=== PATIENT | male | born 1945 | race Caucasian/White ===

== ENCOUNTER 2023-12-19 11:04 | Emergency (ER) | payer OTHER, SELFPAY ==
[2023-12-19] VITALS (7 sets, daily range): BP systolic 100–125; BP diastolic 56–70; BMI 28.4
--- NOTE | 2023-12-19 12:04 | ED.GENMED ---
History of Present Illness
General
Chief Complaint: Chest Problem
Time Seen by Provider: 12/19/23 11:20
Travel History
Have you had any contact with someone who has COVID-19?: No
Do you have any symptoms of coronavirus? Fever > 100 degrees, chills, cough, shortness of breath, sore throat, loss of taste or smell, muscle aches, or headache?: No
History of Present Illness
History of Present Illness:
78-year-old male with history of atrial fibrillation on Eliquis presents to the emergency department from his orthopedic appointment for evaluation of intractable hiccups for the past day associated with A-fib. The patient has been in A-fib ever
since he underwent his knee replacement surgery and was started on Eliquis shortly in the postoperative period. He was seen in the orthopedic office today for follow-up and sutures were removed, it is felt that the knee was improving well however
due to irregular heart rhythm was sent to the emergency department. He denies any chest pain or shortness of breath. He has been hiccuping for the past day with an unclear cause of this.
Past History
Past History
ED Past Medical History: Arrthythmia, HTN, Other (Osteoarthritis, questionable sleep apnea) and Other (Prostate enlargement)
ED Past Surgical History: Orthopedic (knee replacements) and Other (hernia repair)
Patient has exhibited threatening behavior?: No
Social History
Tobacco: Non-smoker
Alcohol: None
Drug: None
Personal:
Living: with family
Employment: Employed (construction)
Family History
Family History: Other (n/c)
Review of Systems
Review of Systems
Allergies reviewed?: Yes
All Other Systems: ROS reviewed and negative except as documented in HPI and ROS
Phy Exam
Physical Exam
Physical Exam:
GEN: Well appearing, NAD, WDWN
Eyes: PERRLA, EOMs intact, no scleral icterus
HENT: NCAT, oral mucosa moist, no JVD, no cervical adenopathy.
Lungs: CTAB, no wheezes, rales, rhonchi, normal chest wall excursion
Cardiac: Regular rate and rhythm, no M/R/G, no peripheral edema. Radial pulses 2+ bilat
Abdomen: S, NT, ND, NABS, no masses or hepatosplenomegaly
Neuro: AO x 3, no focal deficits to BUE/BLE, normal sensation throughout
MSK: Status post left total knee replacement, incision is well-approximated with no dehiscence, significant edema of the left lower extremity baseline for the patient since surgery
Skin: No rashes, petechiae. Normal color, no pallor or jaundice.
Psych: Calm, cooperative, proper hygiene
Course
Orders/Labs/Results
Orders:
Orders
12/19/23 11:12
Electrocardiogram (*1) Urgent
Reason for Study: Atrial Fibrillation
EKG- Treatment ONCE
12/19/23 11:39
CR Chest - 2 Views Urgent
Comment:
Reason For Exam: DEL RIO/SOB
12/19/23 11:42
Complete Blood Count/With Diff Urgent
Comprehensive Metabolic Panel Urgent
NT-proBNP Urgent
Troponin I Urgent
12/19/23 13:42
ChlorproMAZINE [Thorazine] 25 mg IM NOW STA
Abnormal Lab Results
12/19/23
11:42
WBC 14.5 H 10^3/uL
(4.8-10.8)
RBC 4.32 L 10^6/uL
(4.70-6.10)
Hgb 10.3 L g/dL
(13.0-18.0)
Hct 31.0 L %
(39.0-52.0)
MCV 71.8 L fL
(80.0-94.0)
MCH 23.8 L pg
(27.0-31.0)
RDW 16.0 H %
(11.5-14.5)
Abs Immat Gran (auto) 0.1 H 10^3/uL
(0-0.05)
Absolute Neuts (auto) 10.9 H 10^3/uL
(1.4-6.5)
Absolute Monos (auto) 2.1 H 10^3/uL
(0.1-0.6)
Immature Gran % 0.8 H %
(0-0.5)
Lymphocytes % 8.9 L %
(20.5-51.1)
Monocytes % 14.7 H %
(1.7-9.3)
Sodium 132 L mmol/L
(135-145)
BUN 37 H mg/dl
(9-20)
Creatinine 1.8 H mg/dL
(0.7-1.3)
Glucose 110 H mg/dl
(70-99)
Total Bilirubin 1.9 H mg/dl
(0.2-1.3)
Total Protein 5.4 L g/dl
(6.3-8.2)
Albumin 2.9 L g/dl
(3.5-5.0)
12/19/23 11:42
12/19/23 11:42
Vital Signs
Initial and Last Documented VS:
Initial Vital Signs
Temp Pulse Resp BP Pulse Ox
98.0 F 109 16 100/70 98
12/19/23 11:09 12/19/23 11:09 12/19/23 11:09 12/19/23 11:09 12/19/23 11:09
Last Documented Vital Signs
Temp Pulse Resp BP Pulse Ox
99.1 F 95 17 125/59 99
12/19/23 14:10 12/19/23 14:10 12/19/23 14:10 12/19/23 14:10 12/19/23 14:10
MDM/Problems Addressed
MDM/Problems Addressed:
EKG independently interpreted by me is limited due to patient motion artifact however does reveal a rate controlled atrial fibrillation
Patient has been in rate controlled A-fib since his procedure he is currently on diltiazem and metoprolol as well as anticoagulants. He is relatively asymptomatic from a cardiac standpoint. Unclear etiology to the patient's hiccups, no improvement
with IM Thorazine.
*Critical Care Note
Total Time (30-74mins, 75-104mins- exclusive of procedures): Not Applicable
ED Attending Note
-
Portions of this chart may have been created with voice recognition software.� Occasional wrong word or��sound alike� substitutions may have occurred due to the inherent limitations of voice recognition software.
Discharge Plan
Departure
Patient Disposition: Home (Routine Discharge)
Date of Disposition: 12/19/23
Time of Disposition: 13:59
Patient with high blood pressure during this ER visit?: No
Discharge Problem:
Intractable hiccups, Atrial fibrillation
Instructions: Hiccups, Atrial Fibrillation (DC)
Prescriptions:
No Action
colchicine 0.6 MG capsule
0.6 mg PO PRN PRN (Reason: GOUT)
diltiazem HCl 120 MG capsule,ext.rel 24h degradable
120 mg PO BID Qty: 60 3RF
multivitamin Tablet
1 tab PO DAILY
mupirocin 2 % ointment
1 applic topical BID Qty: 1 0RF
metoprolol succinate 50 mg Tablet Extended Release 24 Hr
50 mg PO BID Qty: 1 0RF
sennosides [Senokot] 8.6 mg tablet
17.2 mg PO BID Qty: 2 0RF
cefadroxil 500 mg capsule
500 mg PO BID Qty: 14 0RF
Rx Instructions:
*Take w/ food
*Take w/ probiotic
*POST-OP USE
famotidine 20 mg tablet
20 mg PO HS Qty: 30 0RF
Rx Instructions:
post-op
magnesium hydroxide [Milk of Magnesia] 400 mg/5 mL suspension
30 ml PO HS PRN (Reason: Constipation) Qty: 1 0RF
dexamethasone 4 mg tablet
4 mg PO BID Qty: 6 0RF
Rx Instructions:
take with food
post-op use only
docusate sodium [Colace] 100 mg capsule
100 mg PO BID Qty: 1 0RF
gabapentin 300 mg capsule
300 mg PO HS Qty: 10 0RF
oxycodone 5 mg tablet
5 - 10 mg PO Q6HPRN PRN (Reason: 1 tab moderate-2 tabs severe pain) Qty: 30 0RF
Rx Instructions:
Dx surgery
ongoing therapy
Post-op use
Saccharomyces boulardii [Florastor] 250 mg capsule
250 mg PO BID Qty: 1 0RF
acetaminophen [Tylenol] 325 mg capsule
650 mg PO QID Qty: 2 0RF
Eliquis 2.5 mg tablet
2.5 mg PO BID Qty: 30 1RF
tramadol 50 mg tablet
50 mg PO BID Qty: 14 0RF
Rx Instructions:
Dx Orthopedic surgery
Referrals:
Shashi Park DO [Active] -
Eric Navarro MD [Family Provider] -
Activity Restrictions/Additional Instructions:
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
Interventions
Interventions:
*Risk Screen - Suicide Last Done: 12/19/23 11:53
*General Assessment Last Done: 12/19/23 11:42
*Neglect/Abuse Screening Last Done: 12/19/23 11:20
ED- Fall Risk Assessment Last Done: 12/19/23 11:42
*ED COVID-19 Vaccine History Last Done: 12/19/23 11:09
*Nursing Disposition Last Done: 12/19/23 14:45
ED- Cardiac Assessment Last Done: 12/19/23 11:53
ED- Pulmonary Assessment Last Done: 12/19/23 11:53
Discharge Date and Time
Discharge Date/Time: 12/19/23 14:45
[2023-12-19 12:17] LABS: % Basophils 0.1 % (0-2); % Eosinophils 0.4 % (0-6); % Immature Granulocytes 0.8 % (0-0.5); % Lymphocytes 8.9 % (20.5-51.1); % Monocytes 14.7 % (1.7-9.3); % Neutrophils 75.1 % (42.2-75.2); Absolute Eosinophils 0.1 10^3/uL (0-0.7); Absolute Immature Granulocytes 0.1 10^3/uL (0-0.05); Absolute Lymphocytes 1.3 10^3/uL (1.2-3.4); Absolute Monocytes 2.1 10^3/uL (0.1-0.6); Absolute Neutrophils 10.9 10^3/uL (1.4-6.5); Hemoglobin 10.3 g/dL (13.0-18.0); Mean Corp Hgb Conc. 33.2 g/dL (33.0-37.0); Mean Corpuscular Hgb 23.8 pg (27.0-31.0); Mean Corpuscular Volume 71.8 fL (80.0-94.0); Mean Platelet Volume 9.6 fL (7.4-10.4); Nucleated Red Blood Cells % 0 % (-); Platelet Count 200 10^3/uL (130-400); Red Blood Cell Count 4.32 10^6/uL (4.70-6.10); White Blood Cell Count 14.5 10^3/uL (4.8-10.8)
[2023-12-19 12:21] LABS: ALT (SGPT) 30 U/L (0-50); AST (SGOT) 22 U/L (17-59); Albumin 2.9 g/dl (3.5-5.0); Alkaline Phosphatase 66 U/L (38-126); Blood Urea Nitrogen 37 mg/dl (9-20); Calcium 8.4 mg/dl (8.4-10.2); Carbon Dioxide 25 mmol/L (22-30); Chloride 103 mmol/L (98-107); Estimated Creatinine Clearance 41 ml/min; Glucose 110 mg/dl (70-99); Potassium 4.5 mmol/L (3.5-5.1); Sodium 132 mmol/L (135-145); Total Bilirubin 1.9 mg/dl (0.2-1.3); Total Protein 5.4 g/dl (6.3-8.2); eGFR 38.53
[2023-12-19 12:31] LABS: NT-proBNP 2310 pg/ml; Troponin I 0.026 ng/ml
[2023-12-19] MEDS: THORAZINE 25 MG IM (13:58)
== END 2023-12-19 14:45 | disposition home or self-care (01) ==
LOC: EMR 11:04
PROVIDERS: Physician Assistant; EMERGENCY PHYSICIAN Emergency Medicine; FAMILY PHYSICIAN Internal Medicine
DX: R06.6 Hiccough (principal); I48.91 Unspecified atrial fibrillation; I10 Essential (primary) hypertension; M19.90 Unspecified osteoarthritis, unspecified site; G47.30 Sleep apnea, unspecified; Z96.652 Presence of left artificial knee joint; Z98.890 Other specified postprocedural states; Z88.5 Allergy status to narcotic agent; Z91.048 Other nonmedicinal substance allergy status
CPT/HCPCS: 99284; 96372; 71046; 80053; 83880; 84484; 85025; 93005

== ENCOUNTER → 2024-01-06 09:21 | Day surgery (SDC) | payer OTHER, SELFPAY ==
--- NOTE | 2024-01-06 10:01 | ITS.CL.CARDI ---
Lock Operator - Cardioversion
Cardioversion
Procedure Report:
Date of Procedure: Jan 06 2024
Procedure: Cardioversion
Indication: Symptomatic atrial fibrillation
Performing Physician: Shashi Park DO, FACC
Technique: The patient was brought to the holding area. Signed informed consent was obtained. A time out was called and performed. The patient was anesthetized by the anesthesia service. Anticoagulation status was reviewed and appropriate. R2 pads
were placed anteriorly and posteriorly. A 200 J synchronized biphasic shock restored normal sinus rhythm without significant bradycardia. There were no complications.
Conclusion: Uncomplicated cardioversion from atrial fibrillation to sinus rhythm.
Recommendation: Routine post cardioversion care. Continue termite technician anticoagulation.
== END ==
LOC: CATH 09:21
PROVIDERS: ATTENDING PHYSICIAN Internal Medicine Cardiovascular Disease; FAMILY PHYSICIAN Internal Medicine
DX: I48.0 Paroxysmal atrial fibrillation (principal); I34.0 Nonrheumatic mitral (valve) insufficiency; Z85.51 Personal history of malignant neoplasm of bladder; Z79.01 Long term (current) use of anticoagulants
CPT/HCPCS: 92960; 93005

== ENCOUNTER 2024-06-03 11:16 | Day surgery (SDC) | payer OTHER, SELFPAY ==
[2024-05-27 10:54] LABS: % Basophils 0.8 % (0-2); % Immature Granulocytes 0.3 % (0-0.5); % Lymphocytes 16.3 % (20.5-51.1); % Monocytes 11.1 % (1.7-9.3); % Neutrophils 68.5 % (42.2-75.2); Absolute Basophils 0.1 10^3/uL (0-0.2); Absolute Eosinophils 0.3 10^3/uL (0-0.7); Absolute Lymphocytes 1.4 10^3/uL (1.2-3.4); Absolute Neutrophils 5.9 10^3/uL (1.4-6.5); Hematocrit 38.6 % (39.0-52.0); Hemoglobin 12.4 g/dL (13.0-18.0); Mean Corp Hgb Conc. 32.1 g/dL (33.0-37.0); Mean Corpuscular Hgb 22.3 pg (27.0-31.0); Mean Corpuscular Volume 69.4 fL (80.0-94.0); Mean Platelet Volume 9.8 fL (7.4-10.4); Nucleated Red Blood Cells % 0 % (-); Platelet Count 234 10^3/uL (130-400); Red Blood Cell Count 5.56 10^6/uL (4.70-6.10); White Blood Cell Count 8.6 10^3/uL (4.8-10.8)
[2024-05-27 10:56] LABS: INR 1.51; PT 18.3 Sec (11.4-14.6)
[2024-05-27 11:00] LABS: ALT (SGPT) 13 U/L (0-50); AST (SGOT) 23 U/L (17-59); Alkaline Phosphatase 82 U/L (38-126); Blood Urea Nitrogen 23 mg/dl (9-20); Calcium 9.6 mg/dl (8.4-10.2); Carbon Dioxide 26 mmol/L (22-30); Chloride 108 mmol/L (98-107); Glucose 84 mg/dl (70-99); Magnesium 2.1 mg/dl (1.6-2.3); Potassium 4.6 mmol/L (3.5-5.1); Sodium 141 mmol/L (135-145); Total Bilirubin 1.3 mg/dl (0.2-1.3); Total Protein 6.8 g/dl (6.3-8.2); eGFR 52.09
[2024-05-27 13:32] VITALS: BMI 27.3
[2024-06-03] VITALS (21 sets, daily range): BP systolic 130–160; BP diastolic 74–95; BMI 27.3
[2024-06-03] MEDS: TYLENOL 1000 MG PO (12:52)
[2024-06-03 14:58] LABS: ACT-LR - POC 256 Seconds (116-155)
[2024-06-03 15:18] LABS: ACT-LR - POC 311 Seconds (116-155)
--- NOTE | 2024-06-03 18:34 | PTCARENOTE ---
Received patient from PACU after PVI. Bilateral groin dressings are dry and intact. Pedal pulses palpable. SR on the monitor. Reinforced activity restrictions. HOB at 30 degrees. Oriented to room, call mcdowell in reach. at bedside.
[2024-06-03] MEDS: ELIQUIS 5 MG PO (22:33)
[2024-06-03] MEDS: TOPROL XL 50 MG PO (22:33)
[2024-06-04] VITALS (11 sets, daily range): BP systolic 131–182; BP diastolic 71–101; BMI 27.2
[2024-06-04 06:15] LABS: Hematocrit 37.9 % (39.0-52.0); Hemoglobin 12.3 g/dL (13.0-18.0); Mean Corp Hgb Conc. 32.5 g/dL (33.0-37.0); Mean Corpuscular Hgb 22.7 pg (27.0-31.0); Mean Corpuscular Volume 70.1 fL (80.0-94.0); Mean Platelet Volume 9.9 fL (7.4-10.4); Platelet Count 185 10^3/uL (130-400); Red Blood Cell Count 5.41 10^6/uL (4.70-6.10); Red Cell Dist. Width 17.5 % (11.5-14.5); White Blood Cell Count 8.4 10^3/uL (4.8-10.8)
[2024-06-04 06:27] LABS: Blood Urea Nitrogen 24 mg/dl (9-20); Calcium 9.9 mg/dl (8.4-10.2); Carbon Dioxide 25 mmol/L (22-30); Chloride 107 mmol/L (98-107); Estimated Creatinine Clearance 64 ml/min; Glucose 139 mg/dl (70-99); Magnesium 2.2 mg/dl (1.6-2.3); Potassium 4.9 mmol/L (3.5-5.1); Sodium 139 mmol/L (135-145); eGFR > 60.00
[2024-06-04] MEDS: ELIQUIS 5 MG PO (08:03)
[2024-06-04] MEDS: COLCHICINE 0.6 MG PO (08:04)
[2024-06-04] MEDS: TOPROL XL 50 MG PO (08:04)
--- NOTE | 2024-06-04 09:21 | CM ---
Reviewed chart. Met with Mr. Mendoza to reviewed discharge plans. He states prior to admission he resides with his spouse, daughter, son-in-law and grandchildren in a two story home with two steps to enter. He states he has a full flight of steps to
get to his bedroom/full bathroom. He has an apartment in the basement. He states prior to admission he was independent with ambulation and adls. He states he does not have any DME in the home. He states he has a prescription plan and uses [facility]. The discharge plan is to return home with his family when medically stable.
--- NOTE | 2024-06-04 09:25 | W.PN.CARDCBS ---
Addendum entered and electronically signed by Bulmaro Lim MD 06/04/24 10:55:
Patient seen and examined
Assessment and plan as per WELLNESS ASSISTANT note
Examination:
Cor regular
Bilateral groins clean dry and intact
Alert and x 3
Nonfocal neurologically
Remainder as per PERSONNEL RECRUITER note
Impression:
Symptomatic recurrent persistent Afib
prior PVI 2018
post ablation LAPW 06/03/24
HTN
Gout
Bladder cancer post resection
h/o TKR
SUMMARY:��
Complex left atrial mapping and ablation.
Isolation of the left atrial posterior wall as above with lesions given in the antrum and tonia of the left veins.
Plan:
post ablation feels good
groins stable
tele SR with occ PAT
continue OAC Eliquis
stop diltiazem
continue toprol 50mg bid
Activity restrictions reviewed
f/u Dr. Park in 2 mo
home today
Original Note:
Today's Communication / Plan
-
post ablation stable for d/c home
Impression / Plan
-
PCP: Eric Navarro MD
CDY: Shashi Park, DO
Impression:
Symptomatic recurrent persistent Afib
prior PVI 2018
post ablation LAPW 06/03/24
HTN
Gout
Bladder cancer post resection
h/o TKR
SUMMARY:��
Complex left atrial mapping and ablation.
Isolation of the left atrial posterior wall as above with lesions given in the antrum and tonia of the left veins.
Plan:
post ablation feels good
groins stable
tele SR with occ PAT
continue OAC Eliquis
stop diltiazem
continue toprol 50mg bid
Activity restrictions reviewed
f/u Dr. Park in 2 mo
home today
Progress Note - Electronic Scale Tester
Subjective
Date of Service: June 04, 2024
no cp, sob, mild soreness of groins
Objective
Labs:
06/04/24 05:35
06/04/24 05:35
Labs
Hgb 12.3 g/dL (13.0-18.0) L 06/04/24 05:35
Hct 37.9 % (39.0-52.0) L 06/04/24 05:35
Plt Count 185 10^3/uL (130-400) 06/04/24 05:35
PT 18.3 Sec (11.4-14.6) H 05/27/24 10:08
INR 1.51 05/27/24 10:08
Sodium 139 mmol/L (135-145) 06/04/24 05:35
Potassium 4.9 mmol/L (3.5-5.1) 06/04/24 05:35
BUN 24 mg/dl (9-20) H 06/04/24 05:35
Creatinine 1.1 mg/dL (0.7-1.3) 06/04/24 05:35
Glucose 139 mg/dl (70-99) H 06/04/24 05:35
Vital Signs and I&O:
Vital Signs
Temp Pulse Resp BP Pulse Ox
97.6 F 81 18 155/92 99
06/04/24 07:55 06/04/24 07:45 06/04/24 07:55 06/04/24 07:00 06/04/24 07:55
Vital Signs
Temp Pulse Resp BP Pulse Ox
97.6 F 81 18 155/92 99
06/04/24 07:55 06/04/24 07:45 06/04/24 07:55 06/04/24 07:00 06/04/24 07:55
Intake & Output
06/02/24 06/03/24 06/04/24 06/05/24
06:59 06:59 06:59 06:59
Intake Total 1800 / 1800
Output Total 850 / 850
Balance 950 / 950
Physical Exam
Physical Exam
NAD< AOX3
S1, S2, RRR
CTAB< non labored
SNTND bsx4
b/l groins c/d/i no HT, soft
--- NOTE | 2024-06-04 09:32 | PTCARENOTE ---
Assumed care of pt from night RN. Pt received awake and alert, Ox3. VSS, CM shows NSR with PAC's, POX 100% on RA. Bilateral groins remain CDI with normal CMS throughout bilateral lower limbs. Pt denies any pain or discomfort, ambulating around
room freely. For D/C today.
--- NOTE | 2024-06-04 11:51 | W.DS.TRANS ---
DC Summary - Car Groomer
-
Discharge Instructions:
Sleep Apnea Risk Intermediate
Discharge Diagnosis/Procedures Afib post ablation
Diet Low Cholesterol
Driving Restrictions No driving for 24 hours
Instructions:
Stand-Alone Forms: DC Instructions- Cath/EP Lab
Changes to Home Medications: Yes
Discharge Medications:
DC Medications w/original date entered in yetu
metoprolol succinate 50 mg tablet,extended release 24 hr 50 mg PO BID bp 01/06/24
apixaban 2.5 mg tablet (Eliquis) 5 mg PO BID DVT prevention/Afibb 06/03/24
colchicine 0.6 mg tablet 0.6 mg PO DAILY 06/03/24
Home Medication Changes
stop diltiazem
Pending Results: No
--- NOTE | 2024-06-04 12:00 | PTCARENOTE ---
B/P elevated to 160's systolic. Kennedi Chery made aware. Pt to keep log of B/P's and contact PCP on D/C.
--- NOTE | 2024-06-04 12:41 | PTCARENOTE ---
All D/C info reviewed with pt, all questions answered. Pt D/c'd home with .
== END 2024-06-04 12:30 | disposition home or self-care (01) ==
LOC: CATH 11:16
PROVIDERS: Nurse Practitioner Adult Health; ATTENDING PHYSICIAN Internal Medicine Cardiovascular Disease; FAMILY PHYSICIAN Internal Medicine; OTHER PHYSICIAN Nuclear Medicine Nuclear Cardiology
DX: I48.19 Other persistent atrial fibrillation (principal); I10 Essential (primary) hypertension; M10.9 Gout, unspecified; Z85.51 Personal history of malignant neoplasm of bladder; Z96.659 Presence of unspecified artificial knee joint; Z79.01 Long term (current) use of anticoagulants
CPT/HCPCS: C1732; C1730; C1894; C1733; C1769; C1766; C1759; 36415; 76937; 80048; 80053; 83735; 85025; 85027; 85347; 85610; 86850; 86900; 86901; 93005; 93656

== ENCOUNTER 2024-06-05 08:17 | Emergency (ER) | payer OTHER, SELFPAY ==
[2024-06-05 08:19] VITALS: BP 148/71
[2024-06-05 08:50] VITALS: BP 136/65
[2024-06-05 09:00] VITALS: BP 141/70
[2024-06-05 10:00] VITALS: BP 146/77
--- NOTE | 2024-06-05 10:07 | ED.GENMED ---
History of Present Illness
General
Chief Complaint: Post Operative Problem(s)
Source: patient, records and spouse
Exam Limitations: none
Time Seen by Provider: 06/05/24 09:05
Nursing documentation reviewed up to this point in time: agreed with
History of Present Illness
History of Present Illness:
78-year-old male with history as documented presents with his for evaluation of postoperative bleeding. Patient had cardiac ablation 2 days ago for atrial fibrillation; access was via the groin. He was discharged home and has been doing well
but says that right groin access site has been oozing blood since. He says that he has tried direct pressure, today seem to be using more and soaked through his underwear and he was referred to the emergency room for assessment. He denies any
other complaints today. He is on Eliquis.
Past History
Past History
ED Past Medical History: Arrthythmia, HTN, Other (Osteoarthritis, questionable sleep apnea) and Other (Prostate enlargement)
ED Past Surgical History: Orthopedic (knee replacements) and Other (hernia repair)
Patient has exhibited threatening behavior?: No
Social History
Tobacco: Non-smoker
Alcohol: None
Drug: None
Personal:
Living: with family
Employment: Employed (construction)
Family History
Family History: Other (n/c)
Review of Systems
Review of Systems
All Other Systems: ROS reviewed and negative except as documented in HPI and ROS
Respiratory: Denies trouble breathing
Cardiac: Denies chest pain
Skin: Reports other (Postoperative bleeding)
Neurological: Denies dizzy
Phy Exam
Physical Exam
Physical Exam:
General: Well appearing and non-toxic
HEENT: protecting airway
Neck: appears supple
CV: No evidence of cyanosis
Resp: No accessory muscle use
Abd: Non-distended
Extremities: No deformities
Neuro: Alert
Psych: Normal affect
Skin: Patient has puncture site in the right groin with slow steady oozing of blood; some mild surrounding ecchymosis
Scores
Heart Failure Risk
Heart Failure Risk Score: Not Applicable
Heart Score for Chest Pain Patients
STEMI patient?: Not applicable
Withdrawal Assessment of Alcohol
Withdrawal Assessment Completed?: Not applicable
Course
Vital Signs
Initial and Last Documented VS:
Initial Vital Signs
Temp Pulse Resp BP Pulse Ox
36.7 C 75 16 148/71 97
06/05/24 08:19 06/05/24 08:19 06/05/24 08:19 06/05/24 08:19 06/05/24 08:19
Last Documented Vital Signs
Temp Pulse Resp BP Pulse Ox
36.7 C 74 16 146/77 91
06/05/24 08:19 06/05/24 10:00 06/05/24 08:19 06/05/24 10:00 06/05/24 10:00
Procedures
Laceration Closure
Right Groin:
Status of Wound: clean
Size of Wound in cm: 0.25
Description of Wound Edges: other (Groin puncture site)
Preparation: other (Cleaned with alcohol)
Anesthesia: 1% Lidocaine with epi
Type of Closure: single layer closure (Pursestring suture)
Skin Closure Material: 4-0 vicryl
Number of sutures: 1
MDM/Problems Addressed
Differential Diagnosis Includes:
Postoperative bleeding
MDM/Problems Addressed:
78-year-old male with postoperative bleeding as described above. He is on Eliquis. Vital signs normal. Slow steady oozing from right groin puncture site on physical exam. Applied Surgicel and held direct uninterrupted pressure with good
hemostasis initially, observe for rebleeding.
Patient planing again, soaked through Surgicel dressing. Pursestring suture applied with good hemostasis. Will observe for brief period and discharge. Sinus rhythm on the monitor will hold Eliquis tonight, resume in the morning.
Patient has been hemostatic status post suture as above. Discharged with instructions for rest and return precautions for bleeding or signs of infection. All questions answered.
Chronic conditions affecting care:
A-fib Eliquis which complicates postoperative bleeding
*Pulse Oximetry
Patient hypoxic: no
*Critical Care Note
Total Time (30-74mins, 75-104mins- exclusive of procedures): Not Applicable
Data Reviewed
Source: patient and spouse
ED Attending Note
-
Portions of this chart may have been created with voice recognition software.� Occasional wrong word or��sound alike� substitutions may have occurred due to the inherent limitations of voice recognition software.
Discharge Plan
Departure
Patient Disposition: Home (Routine Discharge)
Date of Disposition: 06/05/24
Time of Disposition: 10:51
Patient with high blood pressure during this ER visit?: Yes
Discharge Problem:
Post-op bleeding
Instructions: Bleeding After Surgery
Prescriptions:
No Action
metoprolol succinate 50 mg tablet extended release 24 hr
50 mg PO BID
colchicine 0.6 mg Tablet
0.6 mg PO DAILY
Eliquis 2.5 mg tablet
5 mg PO BID
Referrals:
Eric Navarro MD [Family Provider] -
Activity Restrictions/Additional Instructions:
Thank you for visiting the Emergency Department at [facility].
1. Please schedule a follow up appointment as directed. Call first thing tomorrow morning to make an appointment.
2. If indicated, please take your medications as instructed and indicated on discharge paperwork.
3. If any of your symptoms do not improve, or persist, or become more severe within 6-12 hours, please return to the emergency department for further care.
4. Please return to the emergency department if you develop a headache, neck pain/stiffness, fever greater than 100.4F, chest pain, shortness of breath, persistent nausea, vomiting, slurred speech, difficulty walking, numbness/tingling, weakness,
signs of infection or any other symptoms that are worrisome to you.
Please call [phone] if you have any questions.
Interventions
Interventions:
*Risk Screen - Suicide Last Done: 06/05/24 08:56
*Neglect/Abuse Screening Last Done: 06/05/24 08:50
ED- Fall Risk Assessment Last Done: 06/05/24 09:28
*ED COVID-19 Vaccine History Last Done: 06/05/24 09:28
ED-Skin Assessment Last Done: 06/05/24 08:56
Discharge Date and Time
Print Language: ICELANDIC
== END 2024-06-05 11:09 | disposition home or self-care (01) ==
LOC: EMR 08:17
PROVIDERS: EMERGENCY PHYSICIAN Emergency Medicine; FAMILY PHYSICIAN Internal Medicine
DX: L76.22 Postprocedural hemorrhage of skin and subcutaneous tissue following other procedure (principal); Y83.9 Surgical procedure, unspecified as the cause of abnormal reaction of the patient, or of later complication, without mention of misadventure at the time of the procedure; I48.91 Unspecified atrial fibrillation; Z79.01 Long term (current) use of anticoagulants; I10 Essential (primary) hypertension
CPT/HCPCS: 99282; 12001

== ENCOUNTER → 2024-06-24 06:42 | Outpatient (REF) | payer OTHER, SELFPAY ==
--- NOTE | 2024-06-03 15:41 | ITS.CL.ABL ---
Arm Maker - Ablation
Ablation
Procedure Report:
ELECTROPHYSIOLOGY ABLATION STUDY
�
DATE:: June 03, 2024���������������������������� REFERRING: Dr. Shashi Park
�
INDICATION: Persistent supraventricular tachycardia in the form of atrial fibrillation.� Prior pulm vein isolation in 2018 with a 28 mm cryoballoon with recurrence recently early in 2023
�
HISTORY: See H and P.� As above
�
ANTIARRHYTHMIC DRUG: Metoprolol and diltiazem for rate control
�
PRE-PROCEDURE JORDAN: No atrial thrombus on intracardiac ultrasound
�
PRESENTING RHYTHM: Atrial fibrillation
�
'TIME-OUT':� called and confirmed.
�
SEDATION/ANESTHESIA:� provided via the anesthesia department using general anesthesia (LMA).
�
INTRAVENOUS/ARTERIAL ACCESS:
Right femoral venous - 8Fr upgraded to a 16 Armenian sheath with serial dilations as there was tortuosity and prior scar tissue in the access site.
Left femoral venous - 8 Fr, 6 Fr
Ultrasound guidance for bilateral femoral vein access was utilized by me to obtain access with demonstration of normal anatomy
CHADS-VASC Score:
�
HAS-Bled Score
�
PROCEDURE:�
1.� A decapolar CS catheter was placed within the CS for mapping and pacing.� This was also used as the reference catheter for the 3-D map.
�
2. The intracardiac ultrasound catheter was positioned in the RA to identify the FO for targeting of transseptal puncture, assist� in identification of the pulmonary vein ostia, monitoring pre and post ablation pulmonary vein flow velocities,
monitoring for 'bubble' formation during RF application as a sign of thermal injury,� and to monitor for pericardial effusion during mapping and ablation procedure.�� Left atrial size, LV ejection fraction, and pulmonary vein flows were monitored
pre and post ablation procedure. The other valves were inspected and found to be free of significant regurgitation or stenosis.
�
3.�Transseptal puncture was performed to diagnose RA and LA pressure so that safety of LA mapping and ablation could be further assessed, and to access the left atrium and pulmonary veins for mapping and ablation.� Transseptal puncture was extremely
challenging. We utilized the available fossa which was extremely anterior and focal with direct visualization and utilizing the 10 Armenian steerable sheath the needle and wire system could access the left atrium but we could not advance either an
Agilis sheath or the contour sheath into the left atrium at this site. We upgraded the right femoral vein sheath to 16 Armenian to aid in stability and this did not help either. We placed the wider in the pulmonary veins left atrial appendage and
left ventricle and none of these wire positions would allow access to the left atrium. As such we remove the wire from the left atrium and performed a separate transseptal puncture through the superior limbus of the left atrium with an Agilis and
Brockenbrough needle higher and more posterior. We were able to advance the Agilis system into the left atrium through the superior limbus. We exchanged over a ProTrac wire with the contour sheath and were able to access the left atrium with our
PFA equipment.
� The fossa ovalis was engaged (indicated by sudden displacement of the sheath tip as well as tenting of the fossa seen on intracardiac ultrasound).� Left atrial access required a pass with the Brockenbrough needle extended.� Left atrial catheter
position was confirmed by pressure monitoring (RA mean pressure 8 mm Hg and LA mean pressure 14 mm Hg), LA saturation ( 99%),� as well as fluoroscopy.� The sheath was advanced over the dilator and positioned in the left atrium.� � The remainder of
the calculated heparin bolus was administered and heparin was
infused to maintain ACT at 300 -350 seconds throughout the case.
�
4.� RA pacing was performed via the proximal decapolar poles and LA pacing was performed via the distal decapolr poles.
�
5. A quadrapolar catheter was first positioned at the His position for His Bundle recording which was tagged via the 3-D Navex sytem, and then passed to the RVA for RV pacing and recording.
�
6. The pulmonary veins were interrogated with the multipolar catheter in each of the LIPV, LSPV, RSPV and the RIPV.��The pulmonary veins were isolated at baseline.
�
7.� Next, a 3-D map was created using Navex.�� A 3-D reconstructed CT image was compared to the 3-D Navex map to assist in anatomic interpretation, mapping and ablation.� The CT image and the NavX image were fused.
�
8. Over a total of 68 lesions we did perform PFA lesions in the anterior of the left superior pulmonary vein and left inferior pulmonary veins at the tonia and posterior wall. We then isolated the posterior wall in a segmental fashion leading to
entrance block in all 4 pulmonary veins plus the posterior wall. Patient was then cardioverted to sinus rhythm with 1 300 J synchronized biphasic shock to sinus rhythm. Exit block was confirmed in all 4 pulmonary veins and the left atrial
posterior wall. Sheaths and catheters were removed from the left atrium and [id number] sutures were placed to the 16 Armenian right femoral vein sheath and the left venous sheaths.
�
9. Normal sinus node and AV node function were noted.
�
TOTAL FLOURO TIME: 20.7 minutes 123 mGy
�
TOTAL RF DURATION: 0 minutes
�
REVERSAL OF HEPARIN: 45 mg of protamine, slow IV administration
�
COMPLICATIONS:�
None
Intracardiac US shows no pericardial effusion post ablation.
�
SUMMARY:��
Complex left atrial mapping and ablation.
Isolation of the left atrial posterior wall as above with lesions given in the antrum and tonia of the left veins.
�
RECOMMENDATIONS:
1. Admit to monitored bed.�
2. Resume anticoagulation
3.� Out of bed 4 hours
4.� Likely discharge on June 04
�
Copy to: Dr. Shashi Park
�
== END ==
LOC: PAVMRI 06:42
PROVIDERS: ATTENDING PHYSICIAN Orthopaedic Surgery; FAMILY PHYSICIAN Internal Medicine
DX: M25.532 Pain in left wrist (principal)
CPT/HCPCS: 73221

== ENCOUNTER 2025-03-30 06:19 | Day surgery (SDC) | payer OTHER, SELFPAY | END 2025-03-30 09:21 | disposition home or self-care (01) | LOC: GI 06:19 | PROVIDERS: ATTENDING PHYSICIAN Internal Medicine Gastroenterology | DX: Z12.11 Encounter for screening for malignant neoplasm of colon (principal); K57.30 Diverticulosis of large intestine without perforation or abscess without bleeding; K64.8 Other hemorrhoids; D12.2 Benign neoplasm of ascending colon; D12.3 Benign neoplasm of transverse colon; K63.5 Polyp of colon; Z86.0101 Personal history of adenomatous and serrated colon polyps | CPT/HCPCS: 45385; 88305 ==

== ENCOUNTER → 2025-05-08 06:36 | Outpatient (REF) | payer OTHER, SELFPAY | LOC: PAVMRI 06:36 | PROVIDERS: ATTENDING PHYSICIAN Physician Assistant; FAMILY PHYSICIAN Internal Medicine | DX: M54.16 Radiculopathy, lumbar region (principal) | CPT/HCPCS: 72148 ==